=== PATIENT | male | born 1995 | race Caucasian/White ===

== ENCOUNTER 2019-02-09 07:10 | Emergency (ER) | payer BC, OTHER ==
[~2019-02-09] VITALS: Ht 177.8 cm; Wt 64.5 kg
[2019-02-09 07:12] VITALS: BP 141/73; PULSE 100; RESP 20; Ht 177.8 cm; Wt 64.5 kg
[2019-02-09] MEDS ORDERED: MED4DP PO (07:30)
[2019-02-09] MEDS ORDERED: NAPR-985 PO (07:30)
[2019-02-09] MEDS ORDERED: CYCL10TA7 PO (07:30)
[2019-02-09] MEDS ORDERED: HYDR-4011 PO (07:30)
[2019-02-09] MEDS ORDERED: IBUPROFEN 800 MG TAB PO ONE (07:30)
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
== END 2019-02-09 07:40 | disposition home or self-care (01) ==
LOC: FTE 07:10
DX: M79.602 Pain in left arm (principal); M54.2 Cervicalgia
CPT/HCPCS: 99283